=== PATIENT | female | born 1970 | race Caucasian/White ===

== ENCOUNTER 2017-06-15 10:59 | Outpatient (RCR) | payer OTHER ==
[~2017-06-15 10:59] MED LIST: ESTRADIOL0.5 MG PO
== END 2017-06-18 ==
LOC: PT 10:59
PROVIDERS: ATTEND Family Medicine
DX: M54.12 Radiculopathy, cervical region (principal)

== ENCOUNTER → 2017-07-18 | Outpatient (RCR) | payer OTHER | LOC: PT 06-20 16:02 | PROVIDERS: ATTEND Family Medicine | DX: M54.12 Radiculopathy, cervical region (principal); M54.2 Cervicalgia; G89.29 Other chronic pain ==

== ENCOUNTER 2017-07-20 16:07 | Outpatient (RCR) | payer OTHER | END 2017-08-18 | LOC: PT 16:07 | PROVIDERS: ATTEND Family Medicine | DX: M54.12 Radiculopathy, cervical region (principal); G89.29 Other chronic pain ==